=== PATIENT | male | born 1955 | race Caucasian/White ===

== ENCOUNTER 2021-07-29 01:23 | Day surgery (SDC) | payer OTHER, SELFPAY ==
[2021-07-17 12:19] VITALS: BMI 32.3
--- NOTE | 2021-07-29 11:51 | WPDANESEPPF ---
Anes - Initial Pre Proc Eval Procedure: Operation Date: 07/29/21 12:45 Proposed Procedures p Screening Colonoscopy - Dragan Mcclure MD Date/Time: 07/29/21 11:51 Surgeon: Dragan Mcclure MD Pre Op Diagnosis: neoplasm screening Patient Data Age: 65 Gender: M Height: 1.85 m Weight: 111 kg Allergies Allergy/AdvReac Type Severity Reaction Status Date / Time No Known Allergies Allergy Verified 07/29/21 11:58 Home Medications Medication Instructions Recorded Confirmed Type ibuprofen 400 mg tablet 400 mg PO Q6H PRN 12/13/20 07/17/21 History levothyroxine 75 mcg tablet 75 mcg PO DAILY 12/13/20 07/17/21 History simvastatin 20 mg tablet 20 mg PO DAILY 12/13/20 07/17/21 History apixaban [Eliquis] 5 mg PO BID 07/17/21 07/17/21 History Patient hx anesthesia problems: none Family hx anesthesia problems: none Results Review: All pre-operative results and documents have been reviewed as part of the pre-operative evaluation. [facility] Past Medical History Medical History (Updated 07/29/21 @ 11:52 by Edgar Anderson DO) Arthritis Atrial fibrillation CHF (congestive heart failure) Hypothyroidism MVP (mitral valve prolapse) Pacemaker Thyroid disease Surgical History Surgical History (Updated 12/13/20 @ 09:52 by Karine Davidson MA) H/O neck surgery Family History Family History (Updated 05/27/19 @ 08:20 by DOCTOR UNKNOWN) Other Diabetes mellitus Family history of elevated blood lipids Social History Social History Smoking status: Former smoker Tobacco type: cigarettes Smoking end date: 10/26/99 Alcohol intake: current Living arrangements: with family Spiritual care concerns: No Anes - Eval Final PreProcedure Day of Procedure 07/29/21 11:51 Patient weight: obese Heart: regular rate and rhythm Lungs: clear to auscultation and normal air movement Airway: Mallampati scale class II Neurological: alert and oriented Last oral intake: >/= 8 hours ASA classification: IV Emergent: no Anesthetic plan: proceed Anesthesia type and monitoring: general GIVS and standard monitoring Results Review: All pre-operative results and documents have been reviewed as part of the pre-operative evaluation. Informed Consent: The patient's anesthetic plan and its attendant risks and benefits were discussed with the patient/family/POA. Questions were solicited and answers provided to the satisfaction of the patient/family/POA.
[2021-07-29 12:02] VITALS: BP 138/77; PULSE 77; RESP 20; TEMP 36.3; O2SAT 97
[2021-07-29] MEDS: LACTATED RINGERS 1,000 ML 150 ML IV CONT (12:15)
--- NOTE | 2021-07-29 13:14 | PM.HPGS ---
History of Present Illness History of Present Illness Consent: Risks, benefits, and alternatives have been discussed and questions answered. Patient agrees to proceed with procedure. Chief complaint: neoplasm screening Narrative: Koko Andrade is a 65 year old male with last colonoscopy 12 years ago. Review of Systems Constitutional: Constitutional: Denies headache(s) and Denies weakness Eyes: Eyes: Denies blurry vision ENT: Reports Normal hearing present, Denies headache(s) and Denies neck pain Cardiovascular: Cardiovascular: Denies chest pain and Denies dyspnea Respiratory: Respiratory: Denies dyspnea Gastrointestinal: Gastrointestinal: Reports no additional gastrointestinal complaints Genitourinary: Genitourinary: Denies dysuria Musculoskeletal: Musculoskeletal: Denies neck pain Integumentary/Breasts: Skin/Breast: Denies dry skin Neurologic: Reports Normal hearing present, Denies headache(s) and Denies weakness Psychiatric: Psychiatric: Denies anxiety Endocrine: Endocrine: Denies change in body appearance Hematologic/Lymphatic: Hematologic/Lymphatic: Denies easy bleeding Allergic/Immunologic: Allergic/Immunologic: Denies urticaria PMFSH Past Medical History Medical History (Updated 07/29/21 @ 13:15 by Dragan Mcclure MD) Arthritis Atrial fibrillation CHF (congestive heart failure) Colon cancer screening Hypothyroidism MVP (mitral valve prolapse) Pacemaker Thyroid disease Surgical History Surgical History (Updated 12/13/20 @ 09:52 by Karine Davidson MA) H/O neck surgery Family History Family History (Updated 05/27/19 @ 08:20 by DOCTOR UNKNOWN) Other Diabetes mellitus Family history of elevated blood lipids Social History Social History Smoking status: Former smoker Tobacco type: cigarettes Smoking end date: 10/26/99 Alcohol intake: current Living arrangements: with family Spiritual care concerns: No Meds Home Medications and Allergies Home Medications Medication Instructions Recorded Confirmed Type ibuprofen 400 mg tablet 400 mg PO Q6H PRN 12/13/20 07/17/21 History levothyroxine 75 mcg tablet 75 mcg PO DAILY 12/13/20 07/29/21 History simvastatin 20 mg tablet 20 mg PO DAILY 12/13/20 07/29/21 History apixaban [Eliquis] 5 mg PO BID 07/17/21 07/29/21 History Allergies Allergy/AdvReac Type Severity Reaction Status Date / Time No Known Allergies Allergy Verified 07/29/21 11:58 Vital Signs Vital Signs - 24 hr 07/29/21 12:02 Temperature 97.3 F L Pulse Rate 77 Respiratory Rate 20 Blood Pressure 138/77 Pulse Oximetry 97 Exam Const: General: comfortable and no acute distress HENMT: General nose exam: Normal nares present Eyes: General: appearance normal, both eyes and all related structures Neck: Neck: no JVD Resp: Auscultation: clear to auscultation bilaterally Cardio: Rate: regular rate Rhythm: regular rhythm GI: Inspection: non-distended GI Palp: Yes Soft to palpation Skin: General skin exam: normal color Neuro: General: gait normal Speech: normal speech Extrem: General: normal to inspection Psych: Mental Status: mental status grossly normal Assessment and Plan Assessment and plan (1) Colon cancer screening: Code(s): Z12.11 - Encounter for screening for malignant neoplasm of colon Status: Acute Assessment and Plan: colonoscopy
[2021-07-29 13:32] VITALS: BP 132/62; PULSE 64; RESP 16; O2SAT 97
[2021-07-29 13:42] VITALS: BP 124/64; PULSE 60; RESP 21; O2SAT 96
[2021-07-29 13:52] VITALS: BP 134/70; PULSE 65; RESP 22; O2SAT 96
== END 2021-07-29 14:10 | disposition home or self-care (01) ==
PROVIDERS: PCP Internal Medicine; Visit Provider Internal Medicine Gastroenterology
PROC: 0DJD8ZZ Inspection of Lower Intestinal Tract, Via Natural or Artificial Opening Endoscopic (ICD-10-PCS; CPT 45378; principal; 2021-07-29 12:45)
DX: Z12.11 Encounter for screening for malignant neoplasm of colon (principal); K57.30 Diverticulosis of large intestine without perforation or abscess without bleeding; K64.8 Other hemorrhoids; D12.2 Benign neoplasm of ascending colon; D12.0 Benign neoplasm of cecum; D12.3 Benign neoplasm of transverse colon; M19.90 Unspecified osteoarthritis, unspecified site; I48.91 Unspecified atrial fibrillation; I50.9 Heart failure, unspecified; E03.9 Hypothyroidism, unspecified; I34.1 Nonrheumatic mitral (valve) prolapse; Z95.0 Presence of cardiac pacemaker; Z87.891 Personal history of nicotine dependence; Z79.01 Long term (current) use of anticoagulants; E66.9 Obesity, unspecified; Z68.30 Body mass index [BMI] 30.0-30.9, adult
CPT/HCPCS: 45380; 88305; J7120

== ENCOUNTER 2022-12-19 09:56 | Outpatient (CLI) | payer OTHER, SELFPAY ==
--- NOTE | ~2022-12-19 | CT_ITS ---
Noncontrast CT scan of the right shoulder CLINICAL HISTORY: Pain TECHNIQUE: Axial noncontrast imaging of the right shoulder was performed. Sagittal oblique and oden l oblique reformatted images were constructed. Dose reduction technique was used on this scan by util izing automated exposure control and iterative reconstruction technique. The dose-length product (DLP ) was 483.93 mGy-cm. Findings: No acute fracture or dislocation seen. There is mild degenerative change at the AC joint, w ith subacromial spur present. No glenohumeral joint degenerative change seen. Visualized musculature about the shoulder is unremarkable. No muscle atrophy evident. No soft tissue mass or fluid collection seen. No joint effusion evident. IMPRESSION: Mild degenerative change of the AC joint, as detailed above. Consider CT arthrogram to better evaluate for rotator cuff or labral tear as indicated, as noncontras t CT is insensitive for these diagnoses. Reviewed, dictated and finalized at [facility]. OR FINANCIAL REPORTING ACCOUNTANT IMPRESSION: Mild degenerative change of the AC joint, as detailed above. Consider CT arthrogram to better evaluate for rotator cuff or labral tear as in dicated, as noncontrast CT is insensitive for these diagnoses.
--- NOTE | ~2022-12-19 | CT_ITS ---
Noncontrast CT scan of the left shoulder CLINICAL HISTORY: Pain TECHNIQUE: Axial noncontrast imaging of the left shoulder was performed. Sagittal oblique and coronal oblique reformatted images were constructed. Dose reduction technique was used on this scan by [employer] automated exposure control and iterative reconstruction technique. The dose-length product (DLP) was 544.98 mGy-cm. Findings: No fracture or dislocation seen. There is mild AC joint degenerative change with possible s mall subacromial spur. No degenerative change at the glenohumeral joint identified. Visualized musculature about the shoulder is unremarkable. No joint effusion is seen. No soft tissue mass or fluid collection identified. IMPRESSION: Mild AC joint degenerative change. No gross abnormality of the glenohumeral joint or surrounding soft tissue structures identified, but noncontrast CT scan poorly evaluates the rotator cuff and labrum. Consider CT arthrogram of the shoul rasta for better evaluation, as pacemaker would presumably preclude MRI. Reviewed, dictated and finalized at location . INE TOOL TECHNICIAN INSTRUCTOR IMPRESSION: Mild AC joint degenerative change. No gross abnormality of the glenohumeral joint or surrounding soft tissue struc tures identified, but noncontrast CT scan poorly evaluates the rotator cuff and labrum. Consider CT arthrogram of the shoulder for better evaluation, as pacem shu would presumably preclude MRI.
== END 2022-12-19 09:57 | disposition home or self-care (01) ==
PROVIDERS: PCP Family Medicine; Visit Provider Orthopaedic Surgery
DX: M19.011 Primary osteoarthritis, right shoulder (principal); M19.012 Primary osteoarthritis, left shoulder
CPT/HCPCS: 73200